=== PATIENT | female | born 1980 | race Caucasian/White ===

== ENCOUNTER 2016-09-26 04:52 | Inpatient (IN) | payer OTHER ==
[~2016-09-26 04:52] MED LIST: NO CURRENT MEDS
[2016-09-26] MEDS ORDERED: LACTATED RINGER'S 1,000 ML IV SCH (06:01)
[2016-09-26] MEDS ORDERED: CEFAZOLIN 2 GM/50 ML (PMX) 50 ML IV SCH (06:30)
[2016-09-26] MEDS ORDERED: METHYLERGONOVINE 0.2 MG INJ IM PRN ×2 (06:30→13:30)
[2016-09-26] MEDS ORDERED: OXYTOCIN 30 UNITS/LR 500 ML IV SCH (06:30)
[2016-09-26] MEDS ORDERED: CARBOPROST 250 MCG INJ IM PRN ×2 (06:30→13:30)
[2016-09-26] MEDS ORDERED: CLINDAMYCIN 900 MG/D5W (PMX) 50 ML IV SCH (06:30)
[2016-09-26] MEDS ORDERED: OXYTOCIN 30 UNITS/LR 500 ML IV PRN ×2 (06:30→13:30)
[2016-09-26] MEDS ORDERED: MISOPROSTOL 200 MCG TAB PR PRN ×2 (06:30→13:30)
[2016-09-26] MEDS ORDERED: CITRIC ACID/NA CITRATE 30 ML CUP ONE (07:07)
[2016-09-26] MEDS ORDERED: ONDANSETRON 4 MG INJ ONE (07:08)
[2016-09-26 07:20] LABS: BASOPHILS % 0.1 % (0.0-2.0); EOSINOPHILS # 0.1 10^3/ul (0.0-0.5); EOSINOPHILS % 0.7 % (0.0-7.0); HEMATOCRIT 38.4 % (37.0-47.0); LYMPHOCYTES # 2.2 10^3/ul (0.8-2.9); LYMPHOCYTES % 19.1 % (15.0-51.0); MEAN CORPUSCULAR HEMOGLOBIN 30.7 pg (29.0-33.0); MEAN CORPUSCULAR HGB CONC 33.8 g/dl (32.0-37.0); MEAN PLATELET VOLUME 9.2 fl (7.4-10.4); MONOCYTE # 0.5 10^3/ul (0.3-0.9); MONOCYTES % 4.3 % (0.0-11.0); NEUTROPHIL # 8.8 10^3/ul (1.6-7.5); NEUTROPHILS % 75.8 % (39.0-77.0); PLATELET COUNT 224 10^3/UL (140-440); RED BLOOD COUNT 4.22 10^6/ul (4.20-5.40); RED CELL DISTRIBUTION WIDTH 13.8 % (11.5-14.5); UNCORRECTED WBC 11.6 10^3/ul (4.8-10.8); WHITE BLOOD COUNT 11.6 10^3/ul (4.8-10.8)
[2016-09-26 07:27] LABS: INR 0.98; PARTIAL THROMBOPLASTIN TIME 28.7 Sec (25.0-35.0)
[2016-09-26] MEDS ORDERED: ONDANSETRON 4 MG INJ IV ONE (07:30)
[2016-09-26] MEDS ORDERED: CITRIC ACID/NA CITRATE 30 ML CUP PO ONE (07:30)
[2016-09-26 07:33] LABS: CONDITION 1
[2016-09-26] MEDS ORDERED: morphine SULFATE/PF (10 MG/10 ML) INJ ONE (08:17)
[2016-09-26] MEDS ORDERED: PHENYLephrine (100 MCG/ML) 5ML SYG ONE (08:28)
[2016-09-26] MEDS ORDERED: OXYTOCIN 10 UNIT INJ ONE ×2 (08:28→08:54)
[2016-09-26] MEDS ORDERED: KETOROLAC 30 MG INJ ONE (08:54)
[2016-09-26] MEDS ORDERED: DEXAMETHASONE 4 MG/ML 1 ML INJ ONE (08:54)
[2016-09-26] MEDS ORDERED: METOCLOPRAMIDE 10 MG INJ ONE (08:54)
--- NOTE | 2016-09-26 09:32 | HP ---
Date/Time of Note Date/Time of Note DATE: 09/26/16 TIME: 09:22 OB - History Hx of Present Free Text/Dictation 36 years old female admitted to [facility] at 39 weeks and 2 days of with the history of 3 previous section and request for voluntary sterilization bilateral tubal ligation EDUCATION REP history [place] at age 12 history of total of 4 including the present and 3 previous section Allergies denies allergies to any known medication Social habits denies smoking and drinking Review of system within normal Chief Complaint: 3 previous section 39 weeks and 2 days requests for bilateral tuba Estimated Due Date: Oct 01, 2016 : 4 Para: 3 Care: Good Care Ultrasounds: Normal mid trimester US Obstetrical Complications: None Medical Complications: None Past Family/Social History * Past Medical, Surgical, Family and Obstetric Histories reviewed from chart. Rubella: immune RPR/VDRL: Negative GBS Status: Negative HBsAG: Negative OB Admission Exam Physical Exam HEENT: WNL Heart: Rhythm Normal Lungs: Clear, Equal Abdomen: WNL Extremities: Normal Reflexes: Normal Cervical Dilatation: None Effacement: 0% Station: -2 Heart Rate: 130's Accelerations: Accelerations Present Last 72 hours Lab Results CBC & BMP 09/26/16 06:15 MIGUEL ANGEL HODGES MD Sep 26, 2016 09:32
[2016-09-26] MEDS ORDERED: DIPHENHYDRAMINE 50 MG INJ ONE (10:21)
[2016-09-26] MEDS ORDERED: NALOXONE (0.4 MG/ML) INJ IV PRN (10:30)
[2016-09-26] MEDS ORDERED: HYDROmorphONE (0.2 MG/ML) 10ML SYG IV PRN (10:30)
[2016-09-26] MEDS ORDERED: HYDROmorphONE 1 MG/ML SYG IV PRN ×2 (10:30)
[2016-09-26] MEDS ORDERED: DIPHENHYDRAMINE 50 MG INJ IV PRN ×2 (10:30)
[2016-09-26] MEDS ORDERED: ZOLPIDEM 5 MG TAB PO PRN (10:30)
[2016-09-26] MEDS ORDERED: MEPERIDINE 25 MG INJ IV PRN (10:30)
[2016-09-26] MEDS ORDERED: KETOROLAC 30 MG INJ IV PRN (10:30)
[2016-09-26] MEDS ORDERED: PROCHLORPERAZINE 10 MG INJ IV PRN ×2 (10:30)
[2016-09-26] MEDS ORDERED: FENTAnyl 50 MCG/ML VIAL IV PRN (10:30)
[2016-09-26] MEDS ORDERED: ONDANSETRON 4 MG INJ IV PRN ×2 (10:30)
--- NOTE | 2016-09-26 11:25 | OPR ---
DATE OF OPERATION: 09/26/2016 PREOPERATIVE DIAGNOSES: Intrauterine at 39 weeks and 2 days, history of 2 previous sections, request for bilateral tubal ligation. POSTOPERATIVE DIAGNOSES: Intrauterine at 39 weeks and 2 days, history of 2 previous sections, request for bilateral tubal ligation. OPERATION PERFORMED: Repeat transverse low cervical section, bilateral tubal ligation. SURGEON: Miguel Angel Ramirez MD LUG LOADER: Avi Ley MD ANESTHESIA: Spinal. ANESTHESIOLOGIST: Javi Bruno MD FINDINGS: Live baby boy with 9 and 9. Baby weighed 3590 grams. DETAILS OF THE PROCEDURE: Under satisfactory spinal anesthesia, the patient was prepped and draped and placed in supine position, tilted to the left. Pfannenstiel incision was made. Old scar was removed. Incision carried through the subcutaneous tissue. Bleeders brought under control with electrocautery. Fascia incised to the length of the incision. Rectus muscle divided in midline. Peritoneum exposed, entered through a transverse incision. Exploration of abdomen, gravid uterus with normal appearing tubes and ovaries. Lower segment of the uterus was extremely thinned out to the thickness of 1 to 2 mm , Bladder flap was developed. Transverse incision was made in the lower segment of the uterus. Amniotic sac ruptured. Clear amniotic fluid noted. Live baby boy was delivered from unengaged vertex with a nuchal cord x1. Nasal oropharyngeal suction was performed and baby handed to the team for immediate attention. Patient received 20 units of Pitocin. Placenta delivered manually intact. Uterine cavity cleaned with wet sponge and drainage established. Uterus closed in 2 layers using Monocryl #1 in continuous fashion. Tubal ligation performed by identifying the ampullar section of the right fallopian tube. A loop was made. Suture material used #0 plain catgut which was reinforced with the same suture material. The top of the loop 3/4 of inch was excised and the cut end of the tube was cauterized and the specimen submitted to pathology. The same procedure performed for the opposite side. Peritoneal cavity was irrigated with warm saline. Sponge, needle and instruments reported to be correct. Abdominal peritoneum closed with 2-0 chromic catgut continuously. Rectus muscle approximated with few interrupted 2- 0 chromic catgut. Fascia closed with #1 PDS in a continuous fashion. Subcutaneous tissue irrigated with warm saline and approximated with 2-0 chromic catgut. The skin closed with francesco. Estimated blood loss 600 mL. Urine bag contained 200 mL of clear urine. Patient tolerated the procedure well , transferred to recovery room in a good condition. Dictated By: MIGUEL ANGEL TO/TRUE Conf#: [id number] DID#: [id number] MTDD
--- NOTE | 2016-09-26 11:39 | OPRPT ---
Intraop Record Datetime Report Generated by CPN: 09/26/2016 11:39 Datetime: 09/26/2016 09:25 Sequential Compression Device: Yes Datetime: 09/26/2016 08:56 OR Number: 2 TIMES/PROCEDURE Arrive OR: 09/26/2016 08:11 Depart OR: 09/26/2016 09:20 Anesthesia Start: 09/26/2016 08:10 Anesthesia End: 09/26/2016 09:39 Surgery Start: 09/26/2016 08:35 Surgery End: 09/26/2016 09:24 Preoperative Dx: Surgical Procedure: Section with BTL Surgical Procedure Other: NA Postoperative Dx: POST REPEAT C/S WAITH BTL C/S Decision Time: 09/26/2016 06:34 C/S Decision to Incision (min): 121 Uterine Incision: 09/26/2016 08:35 PERSONNEL Surgeon: Nitish Ramirez Scrub: Joellen Castrejon Anesthesia Care Provider: Javi Bruno Infant Care: See Delivery Summary for Care Providers Others in OR: RESOURSE NURSE Anesthesia Type: Spinal ASA Level: II RISK FOR INJURY Mode of Arrival: Ambulate Procedure Time Out: Correct Patient Identity; Accurate Procedure Consent Form; Agreement on Procedu re to be Done; Correct Patient Position; Addressed Need to Administer Antibiotics or Fluids for Irri gation; Safety Precautions Based on Patient History or Medication Use; Allergies Reviewed Preoperative Information: Preoperative Checklist Reviewed; Allergies Reviewed; NPO Status Verified RISK FOR ANXIETY/KNOW DEFICIT Emotional Status: Calm/Relaxed Interventions: Provided Education Based on Age and Identified Needs; Communicated Patient Concerns to Appropriate Members of the Health Care Team; Explained Sequence of Events and Perioperative Routi ne; Evaluated Response to Instructions RISK FOR PAIN Pain Teaching: Instructed on Pain Scale Pain Scale: 0.0 PREOPERATIVE OUTCOMES Preoperative Outcomes: Verbalizes/Indicates Decreased Anxiety, Ability to [place], Understanding of Pr ocedure and Sequence of Events. Questions Answered; Demonstrates Adequate Pain Management; Verbaliz es Comfort Related to Transfer/Transport RISK FOR INFECTION Skin Pre-Operative Site: Intact Clip: Clip Clip Location: SUPRA PUBIC Prep: Yes Prep By: DDUNN Prep Solution: Chlorohexadine Catheter: Lord Catheter Size: 16 Catheter Inserted By: DDUNN Surgical Wound Class: I-Clean Dressing Type: Secured Gauze Risk for Impaired Skin Integrity Position in OR: Supine Bony Prominences Protection: Arms Tucked/Padded Positioning Devices: Leg Marcano Risk for Hypothermia Warming Interventions: Warm Sharon(s); Warm Irrigation Risk for Injury Safety Straps Applied: Legs Sequential Compression Device: Yes Electrosurgical Unit: Yes Electrosurgical Unit Number: [id number] Bipolar Number: [id number] EXP. 06/12/2018 Ground Pad Location: Right Anterior Thigh Coag Number: 55 Cut Number: 55 Estimated Blood Loss- OR (ml): 500 1st Count Sponge Count: Correct Needle Count: Correct Blade Count: Correct Instrument Count: Correct 2nd Count Sponge Count: Correct Needle Count: Correct Blade Count: Correct Instrument Count: Not Done 3rd Count Sponge Count: Correct Needle Count: Correct Blade Count: Correct Instrument Count: Correct Final Count Sponge Count 4: Correct Needle Count 4: Correct Blade Count 4: Correct Instrument Count 4: Not Done Surgeon Acknowledged Count: Yes Final Count Resolution: Count Correct Intraoperative Data Equipment: Non-Invasive Blood Pressure; Pulse Oximeter; EKG Blood Products Given: No Implants/Prosthesis Implants/Prosthesis: N/A Grafts: N/A Irrigation Irrigants: NACL Irrigation Amount: 1000 Specimens Specimens: Yes Specimen Type: Fallopian Tubes Disposition: PATHOLOGY Cultures Cultures: N/A X-Ray X-Ray Taken: No Postoperative Skin: Warm; Dry Pain Scale: 0 Condition: Awake; Alert Temperature: 98.6 Operative Outcomes: Patient's Surgery Performed Using Aseptic Technique and in a Manner to Prevent Cross-Contamination; Skin Remains Smooth, Intact, Non-reddened, Non-irritated, Free of Bruising; Cor e Body Temperature Remains in Expected Range Transfer To: PACU Datetime: 07/11/2016 02:05 Drug Allergies/Reactions: No Known Drug Allergies/[place] (05/23/2010)
--- NOTE | 2016-09-26 11:39 | DELSUM ---
Delivery Summary A-C Datetime Report Generated by CPN: 09/26/2016 11:39 DELIVERY PERSONNEL Potable Water Treatment Operator: Briggs, Cici MATERNAL INFORMATION Delivery Anesthesia: Spinal Estimated Blood Loss (ml): 500 Placenta Cultured: No Maternal Complications: None LABOR SUMMARY EDC: 10/01/2016 00:00 No. Babies in Womb: 1 Attempted: No Labor Anesthesia: None LABOR INFORMATION Reason for Induction: Not Applicable Oxytocin: N/A Group B Beta Strep: N/A Antibiotics # of Doses: 1 Antibiotics Time of Last Dose: 0815 Steroids Given: None Reason Steroids Not Administered: Not Applicable MEMBRANES Membranes Rupture Method: Artificial Rupture of Membranes: 09/26/2016 08:37 Length of Rupture (hr): 0.05 Amniotic Fluid Color: Clear Amniotic Fluid Amount: Moderate Amniotic Fluid Odor: None STAGES OF LABOR Stage 3 hr: 0 Stage 3 min: 2 CSECTION DELIVERY Primary Indication: Repeat Elective Secondary Indication: N/A CSection Urgency: Elective CSection Incidence: Repeat Labor: N/A Elective: N/A CSection Incision: Lower Uterine Transverse Sterilization Procedure: Waite BABY A INFORMATION Delivery Date/Time: 09/26/2016 08:40 Method of Delivery: Born in Route : No : N/A Forceps: N/A Vacuum Extraction: N/A Shoulder Dystocia : N/A SHOULDER DYSTOCIA BABY A Infant Delivery Date/Time: 09/26/2016 08:40 PRESENTATION/POSITION BABY A Presentation: Cephalic Cephalic Presentation: Vertex Breech Presentation: N/A PLACENTA INFORMATION BABY A Placenta Delivery Time : 09/26/2016 08:42 Placenta Method of Delivery: Manual Removal Placenta Status: Delivered SCORES BABY A Heart Rate 1 min: >100 bpm Resp Effort 1 min: Good Cry Reflex Irritability 1 min: Cough/Sneeze/Pulls Away Muscle Tone 1 min: Active Motion Color 1 min: Body [place], Extremit Blue SCORE 1 MIN: 9 Heart Rate 5 min: >100 bpm Resp Effort 5 min: Good Cry Reflex Irritability 5 min: Cough/Sneeze/Pulls Away Muscle Tone 5 min: Active Motion Color 5 min: Body [place], Extremit Blue SCORE 5 MIN: 9 INFORMATION BABY A Gestational Age at Delivery: 39.2 Gestational Status: Full Term- 39- 40.6 Weeks Outcome : Liveborn Condition : Stable Infant Sex: Male IDENTIFICATION/MEDS BABY A ID Band Number: [id number] ID Band Location: Right Leg; Left Arm Sensor Applied: Yes Sensor Number: [id number] Sensor Location : Cord Clamp Vitamin K Given : Not Given Erythromycin Given: Not Given WEIGHT/LENGTH BABY A Infant Birthweight (gm): 3590 Infant Weight (lb): 7 Infant Weight (oz): 15 Length (in): 20.00 Infant Length (cm): 50.80 CORD INFORMATION BABY A No. Cord Vessels: 3 Nuchal Cord : N/A Cord Blood Taken: Yes Suction: Mouth ASSESSMENT BABY A Complications: None Physical Findings at Delivery: Within Normal Limits Infant Respirations: Appears Normal Senior Laboratory Technician/ALS Called : No Care By: RESOURSE NURSE Transferred To: Remains with Mother
[2016-09-26 12:20] VITALS: BP 111/60; PULSE 73; RESP 18
[2016-09-26] MEDS ORDERED: OXYCODONE/ACETAMINOPHEN (5/325) TAB PO PRN (13:30)
[2016-09-26] MEDS ORDERED: ACETAMINOPHEN/CODEINE #3 TAB PO PRN ×2 (13:30)
[2016-09-26] MEDS ORDERED: CEFAZOLIN 1 GM/50 ML (PMX) 50 ML IVPB SCH (13:30)
[2016-09-26] MEDS: OXYTOCIN 30 UNITS/LR 500 ML IV SCH ×3 (15:52→21:20)
[2016-09-26 16:35] VITALS: BP 99/56; PULSE 71; RESP 16
[2016-09-26 20:00] VITALS: BP 97/60; PULSE 64; RESP 20
[2016-09-26] MEDS: SENNA/DOCUSATE NA (8.6MG/50MG) TAB PO SCH (21:00)
[2016-09-26] MEDS: LACTATED RINGER'S 1,000 ML IV SCH (21:15)
[2016-09-27 00:15] VITALS: BP 102/59; PULSE 57; RESP 20
[2016-09-27] MEDS: LACTATED RINGER'S 1,000 ML IV SCH ×4 (01:08→21:05)
[2016-09-27] MEDS: OXYTOCIN 30 UNITS/LR 500 ML IV SCH ×4 (01:20→21:05)
[2016-09-27 07:01] VITALS: BP 94/54; PULSE 64; RESP 20
[2016-09-27 08:30] LABS: BASOPHILS % 0.3 % (0.0-2.0); EOSINOPHILS # 0.1 10^3/ul (0.0-0.5); EOSINOPHILS % 0.8 % (0.0-7.0); HEMATOCRIT 32.8 % (37.0-47.0); HEMOGLOBIN 11.1 g/dl (12.0-16.0); LYMPHOCYTES # 2.5 10^3/ul (0.8-2.9); LYMPHOCYTES % 20.6 % (15.0-51.0); MEAN CORPUSCULAR HEMOGLOBIN 30.8 pg (29.0-33.0); MEAN CORPUSCULAR HGB CONC 33.7 g/dl (32.0-37.0); MEAN CORPUSCULAR VOLUME 91.5 fl (82.0-101.0); MEAN PLATELET VOLUME 8.9 fl (7.4-10.4); MONOCYTE # 0.5 10^3/ul (0.3-0.9); MONOCYTES % 3.8 % (0.0-11.0); NEUTROPHIL # 8.9 10^3/ul (1.6-7.5); NEUTROPHILS % 74.5 % (39.0-77.0); PLATELET COUNT 194 10^3/UL (140-440); RED BLOOD COUNT 3.59 10^6/ul (4.20-5.40); RED CELL DISTRIBUTION WIDTH 13.9 % (11.5-14.5)
[2016-09-27 08:40] VITALS: BP 95/53; PULSE 67; RESP 16
[2016-09-27 08:47] LABS: CONDITION 1
--- NOTE | 2016-09-27 08:55 | CONS ---
Date/Time of Note Date/Time of Note DATE: 09/27/16 TIME: 08:52 Consultation Date/Type/Reason Admit Date/Time Sep 26, 2016 at 04:52 Initial Consult Date 09/26/16 Type of Consultation: Anesthesia Reason for Consultation Repeat and BTL 24 HR Interval Summary Free Text/Dictation Patient is a 36 Year old female went under Spinal anesthesia for Repeat C- Section and BTL. Intrathecal Duramorph was used for post-op pain control. Patient is doing well, vital signs are stable she is afebrile. No nausea or vomiting no apnea reported. No sensory or motor loss. Her pain is well controlled. She will be followed by her primary team. Exam/Review of Systems Vital Signs Vitals Vital Signs Date Time Temp Pulse Resp B/P Pulse Ox O2 Delivery O2 Flow Rate FiO2 09/27/16 07:09 Room Air 09/27/16 07:01 97.7 64 20 94/54 09/27/16 03:36 97 21 Intake and Output 09/26/16 09/26/16 09/27/16 15:00 23:00 07:00 Intake Total 4150 ml 750 ml 500 ml Output Total 950 ml 800 ml 350 ml Balance 3200 ml -50 ml 150 ml Results Result Diagram: 09/27/16 0700 Results 24 hrs Laboratory Tests Test 09/27/16 07:00 Basophils # 0.0 Basophils % 0.3 Eosinophils # 0.1 Eosinophils % 0.8 Hematocrit 32.8 L Hemoglobin 11.1 L Lymphocytes # 2.5 Lymphocytes % 20.6 Mean Corpuscular Hemoglobin 30.8 Mean Corpuscular Hemoglobin Concent 33.7 Mean Corpuscular Volume 91.5 Mean Platelet Volume 8.9 Monocytes # 0.5 Monocytes % 3.8 Neutrophils # 8.9 H Neutrophils % 74.5 Nucleated Red Blood Cells # 0.0 Nucleated Red Blood Cells % 0.0 Platelet Count 194 Red Blood Count 3.59 L Red Cell Distribution Width 13.9 White Blood Count 12.0 H Medications Medications Current Medications Naloxone HCl (Narcan) 0.1 mg Q2M PRN IV FOR RESP RATE 8 OR LESS; Start at 10:30; Stop 09/27/16 at 10:29 Ketorolac Tromethamine (Toradol) 30 mg Q6H PRN IV PAIN Last administered on t 06:37; Admin Dose 30 MG; Start 09/26/16 at 10:30; Stop 09/27/16 at 10:29 Hydromorphone HCl (Dilaudid) 0.2 mg Q3H PRN IV PAIN LEVEL 1-5; Start 09/26/16 at 10:30; Stop 09/27/16 at 10:29 Hydromorphone HCl (Dilaudid) 0.4 mg Q3H PRN IV PAIN LEVEL 6-10; Start 09/26/16 at 10:30; Stop 09/27/16 at 10:29 Diphenhydramine HCl (Benadryl) 25 mg Q6H PRN IV ITCHING Last administered on 06:38; Admin Dose 25 MG; Start 09/26/16 at 10:30; Stop 09/27/16 at 10:29 Ondansetron HCl (Zofran Inj) 4 mg Q6H PRN IV NAUSEA AND/OR VOMITING Last administered on 09/26/16 21:14; Admin Dose 4 MG; Start 09/26/16 at 10:30; Stop 09/27/16 at 10:29 Acetaminophen/ Codeine Phosphate (Tylenol No.3) 1 tab Q4H PRN PO PAIN LEVEL 4-6 ; Start 09/26/16 at 13:30 Acetaminophen/ Codeine Phosphate (Tylenol No.3) 2 tab Q4H PRN PO PAIN LEVEL 7- 10; Start 09/26/16 at 13:30 Oxycodone/ Acetaminophen (Percocet (5/ 325)) 1 tab Q4H PRN PO PAIN LEVEL 4-6; Start 09/26/16 at 13:30 Oxycodone/ Acetaminophen (Percocet (5/ 325)) 2 tab Q4H PRN PO PAIN LEVEL 7-10; Start 09/26/16 at 13:30 Ibuprofen (Motrin) 600 mg Q6 PO ; Start 09/27/16 at 12:00 Simethicone (Mylicon) 160 mg Q8H PRN PO DISTENSION/GAS/BLOATING; Start at 13:30 Senna/Docusate Sodium (Senokot-S) 1 tab BID PO ; Start 09/26/16 at 21:00 Diphtheria/ Tetanus/Acell Pertussis 0.5 ml 0.5 ml ONCE ONCE IM* ; Start at 09:00; Stop 09/29/16 at 09:01 Oxytocin/Lactated Ringer's 500 ml @ 0 mls/hr ONCE PRN IV For Hemorrhage Management; Start 09/26/16 at 13:30 Methylergonovine Maleate (Methergine) 0.2 mg ONCE PRN IM VAGINAL BLEEDING; Start 09/26/16 at 13:30 Carboprost Tromethamine (Hemabate) 250 mcg ONCE PRN IM VAGINAL BLEEDING; Start 09/26/16 at 13:30 Misoprostol 1000 mcg 1,000 mcg ONCE PRN [place] VAGINAL BLEEDING; Start 09/26/16 at 13:30 Oxytocin/Lactated Ringer's 500 ml @ 125 mls/hr Q4H IV Last administered on 21:13; Admin Dose 125 MLS/HR; Start 09/26/16 at 13:20 Lactated Ringer's (Lr) 1,000 ml @ 125 mls/hr Q8H IV Last administered on 01:08; Admin Dose 125 MLS/HR; Start 09/26/16 at 16:00 CHRISTOPHER HUNTER MD Sep 27, 2016 08:54
[2016-09-27] MEDS: SENNA/DOCUSATE NA (8.6MG/50MG) TAB PO SCH ×2 (09:25→21:38)
--- NOTE | 2016-09-27 12:33 | PN ---
Date/Time of Note Date/Time of Note DATE: 09/27/16 TIME: 12:31 OB Subjective Subjective Subjective Post day 1 Afebrile abdomen soft incision dry lochia normal extremity normal uterus firm ambulation recommended Laboratory Tests Test 09/27/16 07:00 Basophils # 0.010^3/ul Basophils % 0.3% Eosinophils # 0.110^3/ul Eosinophils % 0.8% Hematocrit 32.8% Hemoglobin 11.1g/dl Lymphocytes # 2.510^3/ul Lymphocytes % 20.6% Mean Corpuscular Hemoglobin 30.8pg Mean Corpuscular Hemoglobin Concent 33.7g/dl Mean Corpuscular Volume 91.5fl Mean Platelet Volume 8.9fl Monocytes # 0.510^3/ul Monocytes % 3.8% Neutrophils # 8.910^3/ul Neutrophils % 74.5% Nucleated Red Blood Cells # 0.010^3/ul Nucleated Red Blood Cells % 0.0/100WBC Platelet Count 16956^3/UL Red Blood Count 3.5910^6/ul Red Cell Distribution Width 13.9% White Blood Count 12.010^3/ul Current Medications Medications (Trade) Dose Ordered Sig/Александр Route PRN Reason Start Time Stop Time Status Last Admin Dose Admin Lactated Ringer's 1,000 ml @ 125 mls/hr Q8H IV 09/26/16 06:01 09/26/16 13:22 DC 09/26/16 06:27 Cefazolin Sodium/ Dextrose 50 ml @ 100 mls/hr ONCE IV 09/26/16 06:30 09/26/16 13:22 DC Clindamycin HCl/ Dextrose 50 ml @ 50 mls/hr ONCE IV 09/26/16 06:30 09/26/16 13:22 DC Oxytocin/Lactated Ringer's 500 ml @ 125 mls/hr ONCE IV 09/26/16 06:30 09/26/16 13:22 DC 09/26/16 10:29 Oxytocin/Lactated Ringer's 500 ml @ 0 mls/hr ONCE PRN IV For Hemorrhage Management 09/26/16 06:30 09/26/16 13:22 DC Methylergonovine Maleate (Methergine) 0.2 mg ONCE PRN IM VAGINAL BLEEDING 09/26/16 06:30 09/26/16 13:22 DC Carboprost Tromethamine (Hemabate) 250 mcg ONCE PRN IM VAGINAL BLEEDING 09/26/16 06:30 09/26/16 13:22 DC Misoprostol (Cytotec) 1,000 mcg ONCE PRN DC VAGINAL BLEEDING 09/26/16 06:30 09/26/16 13:22 DC Citric Acid/ Sodium Citrate (Bicitra) 30 ml STK-MED ONCE .ROUTE 09/26/16 07:07 09/26/16 07:08 DC Ondansetron HCl (Zofran Inj) 4 mg pre-procedure ONCE IV 09/26/16 07:30 09/26/16 07:31 DC 09/26/16 07:43 Citric Acid/ Sodium Citrate (Bicitra) 30 ml pre-procedure ONCE PO 09/26/16 07:30 09/26/16 07:31 DC 09/26/16 07:43 Ondansetron HCl (Zofran Inj) 4 mg STK-MED ONCE .ROUTE 09/26/16 07:08 09/26/16 07:09 DC Morphine Sulfate (Duramorph) 10 mg STK-MED ONCE .ROUTE 09/26/16 08:17 09/26/16 08:18 DC Phenylephrine HCl (Daniel-Synephrine Inj Syg) 500 mcg STK-MED ONCE .ROUTE 09/26/16 08:28 09/26/16 08:29 DC Oxytocin (Oxytocin) 10 units STK-MED ONCE .ROUTE 09/26/16 08:28 09/26/16 08:29 DC Metoclopramide HCl (Reglan) 10 mg STK-MED ONCE .ROUTE 09/26/16 08:54 09/26/16 08:55 DC Oxytocin (Oxytocin) 10 units STK-MED ONCE .ROUTE 09/26/16 08:54 09/26/16 08:55 DC Ketorolac Tromethamine (Toradol) 30 mg STK-MED ONCE .ROUTE 09/26/16 08:54 09/26/16 08:55 DC Dexamethasone (Decadron) 4 mg STK-MED ONCE .ROUTE 09/26/16 08:54 09/26/16 08:55 DC Hydromorphone HCl (Dilaudid (Rec)) 0.4 mg PACU ORDER PRN IV PAIN 09/26/16 10:30 09/26/16 13:22 DC Fentanyl (Sublimaze) 25 mcg PACU ORDER PRN IV PAIN 09/26/16 10:30 09/26/16 13:22 DC Ondansetron HCl (Zofran Inj) 4 mg PACU ORDER PRN IV NAUSEA AND/OR VOMITING 09/26/16 10:30 09/26/16 13:22 DC Prochlorperazine (Compazine Inj) 5 mg PACU ORDER PRN IV NAUSEA AND/OR VOMITING 09/26/16 10:30 09/26/16 10:33 DC Meperidine HCl (Demerol) 25 mg PACU ORDER PRN IV POST-OP RIGORS 09/26/16 10:30 09/26/16 13:22 DC Diphenhydramine HCl (Benadryl) 25 mg PACU ORDER PRN IV PRURITUS 09/26/16 10:30 09/26/16 13:22 DC 09/26/16 10:35 Naloxone HCl (Narcan) 0.1 mg Q2M PRN IV FOR RESP RATE 8 OR LESS 09/26/16 10:30 09/27/16 10:29 DC Ketorolac Tromethamine (Toradol) 30 mg Q6H PRN IV PAIN 09/26/16 10:30 09/27/16 10:29 DC 09/27/16 06:37 Hydromorphone HCl (Dilaudid) 0.2 mg Q3H PRN IV PAIN LEVEL 1-5 09/26/16 10:30 09/27/16 10:29 DC Hydromorphone HCl (Dilaudid) 0.4 mg Q3H PRN IV PAIN LEVEL 6-10 09/26/16 10:30 09/27/16 10:29 DC Diphenhydramine HCl (Benadryl) 25 mg Q6H PRN IV ITCHING 09/26/16 10:30 09/27/16 10:29 DC 09/27/16 06:38 Ondansetron HCl (Zofran Inj) 4 mg Q6H PRN IV NAUSEA AND/OR VOMITING 09/26/16 10:30 09/27/16 10:29 DC 09/26/16 21:14 Prochlorperazine (Compazine Inj) 10 mg ONCE PRN IV NAUSEA AND/OR VOMITING 09/26/16 10:30 09/26/16 10:33 DC Zolpidem Tartrate (Ambien) 5 mg HS MAY REPEAT X 1 PRN PO INSOMNIA 09/26/16 10:30 09/27/16 10:29 DC Miscellaneous Information (* Miscellaneous Pharmacy Order) Duramorph: 0.2 mg Spi... GIVEN XX 09/26/16 10:30 09/26/16 10:33 DC Diphenhydramine HCl (Benadryl) 50 mg STK-MED ONCE .ROUTE 09/26/16 10:21 09/26/16 10:22 DC Acetaminophen/ Codeine Phosphate (Tylenol No.3) 1 tab Q4H PRN PO PAIN LEVEL 4-6 09/26/16 13:30 Acetaminophen/ Codeine Phosphate (Tylenol No.3) 2 tab Q4H PRN PO PAIN LEVEL 7-10 09/26/16 13:30 Oxycodone/ Acetaminophen (Percocet (5/ 325)) 1 tab Q4H PRN PO PAIN LEVEL 4-6 09/26/16 13:30 Oxycodone/ Acetaminophen (Percocet (5/ 325)) 2 tab Q4H PRN PO PAIN LEVEL 7-10 09/26/16 13:30 Ibuprofen (Motrin) 600 mg Q6 PO 09/27/16 12:00 Simethicone (Mylicon) 160 mg Q8H PRN PO DISTENSION/GAS/BLOATING 09/26/16 13:30 Senna/Docusate Sodium (Senokot-S) 1 tab BID PO 09/26/16 21:00 09/27/16 09:25 Lanolin (Kur-Z-Yoxejz) 1 applic BEDSIDE MEDICATION PRN TOP BEDSIDE FOR CARROLL TO NIPPLES 09/26/16 13:30 Diphtheria/ Tetanus/Acell Pertussis 0.5 ml 0.5 ml ONCE ONCE IM* 09/29/16 09:00 09/29/16 09:01 Oxytocin/Lactated Ringer's 500 ml @ 0 mls/hr ONCE PRN IV For Hemorrhage Management 09/26/16 13:30 Methylergonovine Maleate (Methergine) 0.2 mg ONCE PRN IM VAGINAL BLEEDING 09/26/16 13:30 Carboprost Tromethamine (Hemabate) 250 mcg ONCE PRN IM VAGINAL BLEEDING 09/26/16 13:30 Misoprostol 1000 mcg 1,000 mcg ONCE PRN [place] VAGINAL BLEEDING 09/26/16 13:30 Cefazolin Sodium 50 ml @ 100 mls/hr ONCE IVPB 09/26/16 13:30 09/26/16 13:59 DC 09/26/16 15:51 Oxytocin/Lactated Ringer's 500 ml @ 125 mls/hr Q4H IV 09/26/16 13:20 09/26/16 21:13 Lactated Ringer's (Lr) 1,000 ml @ 125 mls/hr Q8H IV 09/26/16 16:00 09/27/16 01:08 MIGUEL ANGEL HODGES MD Sep 27, 2016 12:33
[2016-09-27] MEDS: IBUPROFEN 600 MG TAB PO SCH ×3 (12:45→23:43)
[2016-09-27 17:10] VITALS: BP 86/71; PULSE 76; RESP 18
[2016-09-27 19:30] VITALS: BP 101/54; PULSE 85; RESP 18
[2016-09-27] MEDS: LORATADINE 10 MG TAB PO SCH (21:04)
[2016-09-28 03:30] VITALS: BP 105/57; PULSE 62; RESP 19
[2016-09-28] MEDS: OXYTOCIN 30 UNITS/LR 500 ML IV SCH (04:48)
[2016-09-28] MEDS: IBUPROFEN 600 MG TAB PO SCH ×3 (05:51→17:47)
[2016-09-28 07:30] VITALS: BP 108/74; PULSE 57; RESP 19
[2016-09-28] MEDS: LORATADINE 10 MG TAB PO SCH (09:00)
[2016-09-28] MEDS: SENNA/DOCUSATE NA (8.6MG/50MG) TAB PO SCH ×2 (09:26→21:00)
--- NOTE | 2016-09-28 09:43 | PN ---
Date/Time of Note Date/Time of Note DATE: 09/28/16 TIME: 09:42 OB Subjective Subjective Subjective Post day 2 Vital sign stable abdomen soft uterus firm incision dry bowel sounds present no bowel movement enema ordered ambulation encouraged MIGUEL ANGEL HODGES MD Sep 28, 2016 09:43
[2016-09-28] MEDS ORDERED: NA PHOSPHATE/BIPHOS 133 ML ENEMA PR ONE (10:00)
[2016-09-28] MEDS: LANOLIN 7 GM TUBE TOP PRN (10:44)
[2016-09-28] MEDS: OXYCODONE/ACETAMINOPHEN (5/325) TAB PO PRN ×2 (15:02→21:47)
[2016-09-28 16:20] VITALS: BP 100/59; PULSE 18; RESP 18
[2016-09-28 20:00] VITALS: BP 105/55; PULSE 69; RESP 20
[2016-09-29] MEDS: IBUPROFEN 600 MG TAB PO SCH ×3 (00:36→12:32)
[2016-09-29 04:00] VITALS: BP 110/61; PULSE 65; RESP 20
[2016-09-29] MEDS: LANOLIN 7 GM TUBE TOP PRN (08:08)
[2016-09-29 08:15] VITALS: BP 119/64; PULSE 69; RESP 18
[2016-09-29] MEDS: LORATADINE 10 MG TAB PO SCH (09:00)
[2016-09-29] MEDS ORDERED: DIPHTH/TET/ACEL PERTUSS (ADULT) 0.5 ML VIAL IM* ONE (09:00)
[2016-09-29] MEDS: SENNA/DOCUSATE NA (8.6MG/50MG) TAB PO SCH (09:40)
[2016-09-29] MEDS: OXYCODONE/ACETAMINOPHEN (5/325) TAB PO PRN (09:41)
--- NOTE | 2016-09-29 15:04 | DS ---
Date/Time of Note Date/Time of Note DATE: 09/29/16 TIME: 14:59 Obstetrical Discharge Record Final Diagnosis Final Diagnosis: Term delivered Section Section: Repeat Condition on Discharge Physical Assessment Last Vitals: Vital sign a stable afebrile; abdomen soft uterus firm incision dry extremity normal had normal bowel movement discharged home with instructions to be seen at the clinic in 4-5 days to DC francesco patient discharged home with a prescription of Motrin and Tylenol 3 recommended continue taking vitamin and iron supplement Voiding: Yes Bowel Movement: Yes Breast: Filling Fundus: Firm Abdomen and Incision: Healing well and dry Calf Tenderness: No Patient Condition: Good MIGUEL ANGEL HODGES MD Sep 29, 2016 15:04
== END 2016-09-29 16:40 | disposition home or self-care (01) | DRG 766 ==
LOC: L-D 04:52 → PP1 12:14
PROVIDERS: ADMIT Obstetrics & Gynecology; ATTEND Obstetrics & Gynecology
PROC: 0UL70ZZ Occlusion of Bilateral Fallopian Tubes, Open Approach (ICD-10-PCS; 2016-09-26)
PROC: 10D00Z1 Extraction of Products of Conception, Low, Open Approach (ICD-10-PCS; principal; 2016-09-26 07:30)
DX: O34.219 Maternal care for unspecified type scar from previous cesarean delivery (principal); O69.81X0 Labor and delivery complicated by cord around neck, without compression, not applicable or unspecified; Z3A.39 39 weeks gestation of pregnancy; Z37.0 Single live birth; Z30.2 Encounter for sterilization
CPT/HCPCS: 85025; 85610; 85730; 86592; 86850; 86900; 86901; 88302; 90715; 94760; 99464; J0690; J1100; J1200; J1885; J2274; J2370; J2405; J2590; J2765; J7120